=== PATIENT | female | born 1985 | race Caucasian/White ===

== ENCOUNTER 2017-04-20 17:44 | Emergency (ER) | payer OTHER ==
--- NOTE | ~2017-04-20 | US61 ---
[facility] A Service of [facility] RADIOLOGY TEXT RESULTS PATIENT: KERA MOELLER LOCATION: SED : [birth year] UNIT #: [id number] AGE: [address]: PHILLIP DIAZ SEX: F ORDER DR: [id number] [place] [id number] E MR#: [id number] Acc #: [id number] NAME: KERA MOELLER : 1985 SEX: F STUDY DATE/TIME: 04/20/2017 20:47 UNIT: SED ROOM: STUDY DESCRIPTION: US /Mat <14Wk / Attending Physician: Phillip Diaz Aprn Ordering Physician: Phillip Diaz Aprn Primary Care Physician: Primary Care Physician No MEDICAL IMAGING REPORT This report is preliminary unless electronic signature is present. EXAM Ultrasound pelvis, early assessment, 04/20/2017 HISTORY 31-year-old female in the ED complaining of 1-day history of cramping abdominal pain and nausea during early (serum quantitative HCG level 2,690 mIU/mL. TECHNIQUE Pelvic ultrasound examination was performed transabdominally and endovaginally. FINDINGS There is a tiny, fluid-filled sac-like structure embedded eccentrically within the mid uterine endometrium measuring about 4 mm in size. No embryonic landmarks are visible at this time. This structure may represent an early gestational sac or a pseudo sac. The findings represent of unknown location, and careful clinical and laboratory followup is recommended. Left ovary is normal. Right ovary is not identified. There is no free pelvic fluid. IMPRESSION Early of unknown location. Tiny gestational sac versus pseudo sac within the endometrial cavity as noted above. Ectopic is not excluded, and followup is recommended as detailed above. Dictated by... Milo Lemos M.D. [facility] A Service [facility] RADIOLOGY TEXT RESULTS PATIENT: KERA MOELLER LOCATION: SED : 89 UNIT #: [id number] AGE: [address]: PHILLIP DIAZ SEX: F ORDER DR: THIS IS AN ELECTRONICALLY VERIFIED REPORT Milo Lemos M.D. at 04/21/2017 6:02 AM SHIRA/graciela TD: 04/21/2017 01:32 JOB #: [id number] MEDICAL IMAGING REPORT Page 1 of 1
[~2017-04-20 17:44] MED LIST: HYDROXYZINE PAM25 M1 PO; TOPAMAX50 MG PO
[2017-04-20 18:32] LABS: URINE SOURCE CLEAN CATCH
[2017-04-20 18:34] LABS: MICRO INDICATED? YES; URINE APPEARANCE CLEAR; URINE BILIRUBIN NEG (NEG); URINE BLOOD 1+ (NEG); URINE COLOR YELLOW; URINE GLUCOSE NEG (NORM); URINE KETONE NEG (NEG); URINE LEUKOCYTE ESTERASE NEG (NEG); URINE NITRATE NEG (NEG); URINE PH 5.5 (5-8); URINE PROTEIN NEG (NEG); URINE SPECIFIC GRAVITY >=1.030 (1.003-1.035); URINE UROBILINOGEN 0.2 MG/DL (NORM)
[2017-04-20 18:37] LABS: CULTURE INDICATED? NO; URINE BACTERIA NEG (NEG); URINE MUCUS PRESENT; URINE SQUAMOUS EPITHELIAL CELL OCCAS /[HPF]; URINE WBC NEG /[HPF] (0-5)
== END 2017-04-20 22:36 | disposition home or self-care (01) ==
LOC: SED 17:44
PROVIDERS: Nurse Practitioner Family
DX: M54.5 Low back pain (principal); R10.9 Unspecified abdominal pain; Z90.49 Acquired absence of other specified parts of digestive tract; F17.200 Nicotine dependence, unspecified, uncomplicated
CPT/HCPCS: 76801; 76817; 81003; 84702; 84703; 99284